=== PATIENT | female | born 1950 ===

== ENCOUNTER 2016-07-01 11:05 | Outpatient (CLI) | payer MEDICARE ==
--- NOTE | 2016-07-01 12:24 | Mammography Report ---
BILATERAL DIGITAL DIAGNOSTIC MAMMOGRAM with CAD: 07/01/16 11:05:00 CLINICAL: Occasional bilateral breast pain. COMPARISON:None. FINDINGS: The breasts are almost entirely fatty.No mass, architectural distortion or suspicious calcifications. IMPRESSION: Negative mammogram. BI-RADS CATEGORY: 1 - - Negative RECOMMENDATION: Routine mammographic screening in one year. ACR BI-RADS MAMMOGRAPHIC CODES: 0 = Needs additional imaging evaluation; 1 = Negative; 2 = Benign; 3 = Probably benign; 4 = Suspicious; 5 = Malignant; 6 = Known biopsy-proven malignancy COMMENT: 1. Dense breast tissue, i.e., adenosis, fibrocystic changes, etc., may obscure an underlying neoplasm. 2. Approximately 10% of cancers are not detected with mammography. 3. A negative mammography report should not delay biopsy if a clinically suspicious mass is present. COMMENT: Patient follow-up letters are generated by our [employer] application.
== END 2016-07-01 11:06 | disposition home or self-care (01) ==
LOC: SPVWC 11:05
PROVIDERS: ATTEND Obstetrics & Gynecology
DX: N64.4 Mastodynia (principal)
CPT/HCPCS: 77066; G0204

== ENCOUNTER 2016-09-03 08:21 | Outpatient (CLI) | payer MEDICARE ==
--- NOTE | 2016-09-06 16:05 | Cat Scan Report ---
CT chest with contrast: Transverse images are obtained from the thoracic inlet into the upper abdomen. Coronal and sagittal 2-D reformatted images were included. The thyroid gland is slightly inhomogeneous and it may be a small nodule right lobe. There is a focal area of fatty tissue located in the medial right pectoralis there are mild bilateral patchy areas of muscle. The thoracic aorta is normal in size and contour. The pulmonary arteries are unremarkable. No filling defects identified. No hilar or mediastinal adenopathy appreciated. The distal esophagus is slightly dilated and may be a small sliding hiatus hernia. There are no pulmonary nodules identified. Mild focal areas of curvilinear appearing atelectasis are noted in the lower lobes and there may be a mild area of patchy atelectasis also on the left. Sections of the upper abdomen demonstrate multiple gallbladder calculi. No inflammatory changes identified. Impression: 1. Bibasilar pulmonary atelectasis. 2. Gallstones. 3. Mildly inhomogeneous thyroid predominantly on the right with small nodule/nodules.
== END 2016-09-03 08:22 | disposition home or self-care (01) ==
LOC: SPVIMAG 08:21
PROVIDERS: ATTEND Internal Medicine
DX: R91.1 Solitary pulmonary nodule (principal)
CPT/HCPCS: 71260; Q9967